=== PATIENT | female | born 1975 | race Asian ===

== ENCOUNTER 2021-11-07 11:50 | Outpatient (CLI) | payer OTHER | END 2021-11-07 11:51 | disposition home or self-care (01) | LOC: CSHMAMMO 11:50 | PROVIDERS: ATTEND Student in an Organized Health Care Education/Training Program | DX: Z12.31 Encounter for screening mammogram for malignant neoplasm of breast (principal) | CPT/HCPCS: 77063; 77067 ==

== ENCOUNTER 2022-12-24 08:47 | Outpatient (CLI) | payer OTHER | END 2022-12-24 08:48 | disposition home or self-care (01) | LOC: CSHMAMMO 08:47 | PROVIDERS: ATTEND Student in an Organized Health Care Education/Training Program | DX: Z12.31 Encounter for screening mammogram for malignant neoplasm of breast (principal) | CPT/HCPCS: 77063; 77067 ==

== ENCOUNTER 2024-01-02 15:21 | Outpatient (CLI) | payer OTHER | END 2024-01-02 15:22 | disposition home or self-care (01) | LOC: CSHMAMMO 15:21 | PROVIDERS: ATTEND Student in an Organized Health Care Education/Training Program | DX: Z12.31 Encounter for screening mammogram for malignant neoplasm of breast (principal) | CPT/HCPCS: 77063; 77067 ==

== ENCOUNTER 2025-01-01 08:20 | Outpatient (CLI) | payer OTHER | END 2025-01-01 08:21 | disposition home or self-care (01) | LOC: CSHULT 08:20 | PROVIDERS: ATTEND Student in an Organized Health Care Education/Training Program | DX: S46.812A Strain of other muscles, fascia and tendons at shoulder and upper arm level, left arm, initial encounter (principal) | CPT/HCPCS: 76536 ==

== ENCOUNTER 2025-02-23 09:42 | Outpatient (CLI) | payer OTHER | END 2025-02-23 09:43 | disposition home or self-care (01) | LOC: CSHMAMMO 09:42 | PROVIDERS: ATTEND Family Medicine | DX: Z12.31 Encounter for screening mammogram for malignant neoplasm of breast (principal); R16.0 Hepatomegaly, not elsewhere classified; R92.333 Mammographic heterogeneous density, bilateral breasts | CPT/HCPCS: 76705; 77063; 77067 ==